=== PATIENT | female | born 1935 | race Hispanic/Latino ===

== ENCOUNTER 2017-07-03 09:49 | Emergency (ER) | payer MEDICARE ==
[2017-07-03 11:26] LABS: BASOPHILS % (AUTO) 0.5 % (0.0-5.0); EOSINOPHILS % (AUTO) 2.4 % (0.0-8.0); MEAN CORPUSCULAR HEMOGLOBIN 30.9 pg (27.0-33.0); MEAN CORPUSCULAR HGB CONC 33.9 g/dL (32.0-36.0); MEAN CORPUSCULAR VOLUME 91.1 fL (79-99); MONOCYTES % (AUTO) 7.1 % (3.0-13.0); PLATELET COUNT (AUTO) 221 K/uL (130-400); RED BLOOD CELL COUNT(AUTO) 4.39 MIL/uL (4.00-5.50); RED CELL DISTRIBUTION WIDTH 13.9 % (11.0-15.5); WHITE BLOOD COUNT (AUTO) 7.9 K/uL (4.8-10.8)
[2017-07-03 11:55] LABS: INR 0.92 (0.85-1.15); PROTHROMBIN TIME 9.7 SEC (9.6-11.6)
[2017-07-03 12:01] LABS: CREATININE 0.7 mg/dL (0.5-1.5); POTASSIUM 3.9 mmol/L (3.5-5.1)
[2017-07-03 12:17] LABS: PARTIAL THROMBOPLASTIN TIME 22.8 SEC (26.3-35.5)
[2017-07-03] MEDS ORDERED: TRAMADOL HCL 50 MG TABLET ONE (12:58)
== END 2017-07-03 13:19 | disposition home or self-care (01) ==
LOC: EDH 09:49
DX: M25.462 Effusion, left knee (principal); G89.29 Other chronic pain; M25.562 Pain in left knee; I10 Essential (primary) hypertension; E11.9 Type 2 diabetes mellitus without complications; E78.5 Hyperlipidemia, unspecified; M19.90 Unspecified osteoarthritis, unspecified site; R60.0 Localized edema; Z79.4 Long term (current) use of insulin
CPT/HCPCS: 36415; 73562; 80048; 85025; 85610; 85730; 93925; 93971

== ENCOUNTER 2018-03-31 15:34 | Emergency (ER) | payer MEDICARE ==
[2018-03-31] MEDS ORDERED: IPRATROPIUM/ALBUTEROL SULFATE 3 ML SOLUTION IH ONE (17:18)
[2018-03-31 17:34] LABS: BASOPHILS % (AUTO) 1.1 % (0.0-5.0); EOSINOPHILS % (AUTO) 2.6 % (0.0-8.0); HEMATOCRIT 39.9 % (36-48); LYMPHOCYTES % (AUTO) 29.6 % (21.0-51.0); MEAN CORPUSCULAR HGB CONC 34.7 g/dL (32.0-36.0); MEAN CORPUSCULAR VOLUME 92.3 fL (79-99); MONOCYTES % (AUTO) 6.8 % (3.0-13.0); NEUTROPHILS % (AUTO) 59.9 % (40.0-77.0); PLATELET COUNT (AUTO) 220 K/uL (130-400); RED BLOOD CELL COUNT(AUTO) 4.32 MIL/uL (4.00-5.50); RED CELL DISTRIBUTION WIDTH 13.6 % (11.0-15.5); WHITE BLOOD COUNT (AUTO) 7.8 K/uL (4.8-10.8)
[2018-03-31 18:07] LABS: CREATININE 0.8 mg/dL (0.5-1.5); POTASSIUM 3.9 mmol/L (3.5-5.1)
== END 2018-03-31 18:58 | disposition home or self-care (01) ==
LOC: EDH 15:34
DX: J06.9 Acute upper respiratory infection, unspecified (principal); E11.9 Type 2 diabetes mellitus without complications; E78.5 Hyperlipidemia, unspecified; I10 Essential (primary) hypertension; Z79.4 Long term (current) use of insulin
CPT/HCPCS: 36415; 71046; 80048; 85025; 87804; 94640

== ENCOUNTER 2021-10-28 08:06 | Observation (INO) | payer MEDICARE ==
[2021-10-26 14:40] LABS: BASOPHILS % (AUTO) 0.7 % (0.0-5.0); EOSINOPHILS % (AUTO) 2.9 % (0.0-8.0); HEMATOCRIT 44.9 % (36-48); LYMPHOCYTES % (AUTO) 29.6 % (21.0-51.0); MEAN CORPUSCULAR HEMOGLOBIN 31.3 pg (27.0-33.0); MEAN CORPUSCULAR HGB CONC 32.7 g/dL (32.0-36.0); MEAN CORPUSCULAR VOLUME 95.7 fL (79-99); MONOCYTES % (AUTO) 7.4 % (3.0-13.0); NEUTROPHILS % (AUTO) 59.1 % (40.0-77.0); PLATELET COUNT (AUTO) 204 K/uL (130-400); RED BLOOD CELL COUNT(AUTO) 4.69 MIL/uL (4.00-5.50); RED CELL DISTRIBUTION WIDTH 14.5 % (11.0-15.5); WHITE BLOOD COUNT (AUTO) 7.5 K/uL (4.8-10.8)
[2021-10-26 14:56] LABS: CREATININE 1.1 mg/dL (0.5-1.5); POTASSIUM 4.1 mmol/L (3.5-5.1)
[2021-10-26 14:58] LABS: PROTHROMBIN TIME 10.9 SEC (9.6-11.6)
[2021-10-26 15:00] LABS: PARTIAL THROMBOPLASTIN TIME 25.6 SEC (26.3-35.5)
[2021-10-26 15:27] LABS: APPEARANCE,URINE Clear (CLEAR); BILIRUBIN,URINE Negative (NEGATIVE); COLOR,URINE Yellow (YELLOW); GLUCOSE, URINE (UA) Negative (NEGATIVE); KETONES,URINE Negative (NEGATIVE); LEUKOCYTE ESTERASE ,URINE Small (NEGATIVE); NITRATE,URINE Negative (NEGATIVE); OCCULT BLOOD,URINE Negative (NEGATIVE); PROTEIN,URINE Negative (NEGATIVE); UROBILINOGEN,URINE 0.2 mg/dL (0.2-1.0)
[2021-10-26 15:42] LABS: RBC,URINE 0-1 /HPF (0-1); WBC,URINE 0-1 /HPF (0-1)
[2021-10-26 15:43] LABS: BACTERIA,URINE Few /HPF (None Seen); SQUAMOUS EPITHELIAL CELL,UR Few /HPF (0-2)
[2021-10-27 11:14] VITALS: BP 188/86
[2021-10-27] MEDS: DiphenhydrAMINE HCL 50 MG/ML VIAL IVP SCH (12:05)
[2021-10-28] VITALS (16 sets, daily range): BP systolic 106–227; BP diastolic 52–111
[~2021-10-28] VITALS: Ht 149.9 cm; Wt 78.5 kg
[~2021-10-28 08:06] MED LIST: 0.9% NACL 500ML IV.SOLN 500 ML IV SCH; AMLO-257 PO; APIX2.5T PO; CARV6.25 PO; INS7030 SQ; SIMV-43 PO
[2021-10-28] MEDS ORDERED: 0.9%NACL 1000ML 1,000 ML IV ONE (08:47)
[2021-10-28] MEDS ORDERED: FENTANYL CITRATE PF 50 MCG/1 ML 2ML VIAL ONE ×2 (11:54→17:03)
[2021-10-28] MEDS ORDERED: MIDAZOLAM HCL 1 MG/ML 2ML VIAL ONE (11:54)
[2021-10-28] MEDS ORDERED: IOHEXOL-350 50ML VIAL IV ONE (11:54)
[2021-10-28] MEDS ORDERED: LIDOCAINE HCL 400MG/20ML VIAL ONE ×3 (11:54→13:42)
[2021-10-28] MEDS ORDERED: LIDOCAINE HCL 1% MDV 50ML VIAL ONE (11:57)
[2021-10-28] MEDS ORDERED: BUPIVACAINE/PF 0.25% 30ML VIAL IJ ONE (11:57)
[2021-10-28] MEDS: DiphenhydrAMINE HCL 50 MG/ML VIAL IVP SCH (12:00)
[2021-10-28] MEDS ORDERED: VANCOMYCIN 1G/250ML KIT 500 ML IV ONE (12:26)
[2021-10-28] MEDS ORDERED: IODIXANOL 320 MG/ML 100 ML VIAL ONE (13:04)
[2021-10-28] MEDS ORDERED: HEPARIN 10,000 UNIT/10ML (1,000 UNIT/ML) VIAL ONE (13:44)
[2021-10-28] MEDS ORDERED: DEXTROSE 50%-WATER 50 ML DISP.SYRIN IV PRN (14:30)
[2021-10-28] MEDS ORDERED: HYDRALAZINE 20MG/ML VIAL ONE (16:07)
[2021-10-28] MEDS: INSULIN HUMULIN R 100 UNIT/ML 3ML SQ SCH ×2 (20:00→21:00)
[2021-10-29 00:11] VITALS: BP 145/73
[2021-10-29 04:19] VITALS: BP 143/73
[2021-10-29] MEDS: INSULIN HUMULIN R 100 UNIT/ML 3ML SQ SCH ×3 (05:58→16:30)
[2021-10-29 08:00] VITALS: BP 133/58
[2021-10-29 12:00] VITALS: BP 163/84
[2021-10-29] MEDS ORDERED: HYDROCORTISONE 1% CREAM 28G TP PRN (12:00)
[2021-10-29] MEDS ORDERED: NYSTATIN 15 GM POWDER TP SCH (12:30)
[2021-10-29 12:47] LABS: BASOPHILS % (AUTO) 0.5 % (0.0-5.0); HEMATOCRIT 46.7 % (36-48); LYMPHOCYTES % (AUTO) 17.8 % (21.0-51.0); MEAN CORPUSCULAR HEMOGLOBIN 30.7 pg (27.0-33.0); MEAN CORPUSCULAR HGB CONC 33.4 g/dL (32.0-36.0); MEAN CORPUSCULAR VOLUME 91.9 fL (79-99); MONOCYTES % (AUTO) 7.9 % (3.0-13.0); NEUTROPHILS % (AUTO) 72.4 % (40.0-77.0); PLATELET COUNT (AUTO) 174 K/uL (130-400); RED BLOOD CELL COUNT(AUTO) 5.08 MIL/uL (4.00-5.50); RED CELL DISTRIBUTION WIDTH 14.2 % (11.0-15.5)
[2021-10-29 12:58] LABS: CREATININE 0.8 mg/dL (0.5-1.5); POTASSIUM 3.5 mmol/L (3.5-5.1)
[2021-10-29 13:02] LABS: ALBUMIN 3.4 g/dL (3.5-5.0); CRP QUANTITATIVE 29.2 mg/L (0.00-9.0); TOTAL PROTEIN, SERUM 7.1 g/dL (6.0-8.3)
[2021-10-29 13:56] LABS: ERYTHROCYTE SEDIMENTATION RATE 15 MM/HR (0-30)
[2021-10-29 16:00] VITALS: BP 152/78
== END 2021-10-29 18:44 | disposition home or self-care (01) ==
LOC: DAH 08:06 → DAHIP 08:07 → DAH 08:07 → 2DH 18:51
PROVIDERS: ADMIT Internal Medicine Interventional Cardiology; ATTEND Internal Medicine Interventional Cardiology
DX: I49.5 Sick sinus syndrome (principal); L03.314 Cellulitis of groin; I48.0 Paroxysmal atrial fibrillation; E78.5 Hyperlipidemia, unspecified; B35.9 Dermatophytosis, unspecified; I10 Essential (primary) hypertension; E11.9 Type 2 diabetes mellitus without complications; E66.9 Obesity, unspecified; H91.90 Unspecified hearing loss, unspecified ear; Z79.01 Long term (current) use of anticoagulants; Z95.0 Presence of cardiac pacemaker; Z79.899 Other long term (current) drug therapy; Z91.048 Other nonmedicinal substance allergy status
CPT/HCPCS: 80048; 85025 ×2; 85610; 85730; 81001; 36415 ×2; 71045 ×2; 93005; 96374; 33274; 96376; 82948 ×5; 80053; 85651; 86140; 97161; 97039; 84145; C1769 ×2; C1894 ×2; C1785; G0378 ×26; J1200; J3010 ×2; J3490 ×4; J7030; J0360; J1644 ×3; J2250; J3370; Q9967; A4520; A4615; A4215; A4223 ×3; A4554; A4335; A4222; A4221; A4663; A4216; A6206; A6258; A4606; 99156; 99157

== ENCOUNTER 2022-02-01 01:24 | Inpatient (IN) | payer MEDICARE ==
[~2022-02-01] VITALS: Ht 142.2 cm; Wt 74.4 kg
[~2022-02-01 01:24] MED LIST changes: -0.9% NACL 500ML IV.SOLN 500 ML IV SCH
[2022-02-01] MEDS ORDERED: ASPIRIN 81MG CHEW TAB PO ONE (02:30)
[2022-02-01] MEDS ORDERED: ALBUTEROL 0.083% 2.5 MG/3 ML INH IH ONE (02:30)
[2022-02-01] MEDS ORDERED: HYDRALAZINE 20MG/ML VIAL IV ONE (02:30)
[2022-02-01 02:31] LABS: BASOPHILS % (AUTO) 0.7 % (0.0-5.0); EOSINOPHILS % (AUTO) 1.2 % (0.0-8.0); HEMATOCRIT 48.1 % (36-48); LYMPHOCYTES % (AUTO) 14.3 % (21.0-51.0); MEAN CORPUSCULAR HEMOGLOBIN 30.8 pg (27.0-33.0); MEAN CORPUSCULAR HGB CONC 32.6 g/dL (32.0-36.0); MEAN CORPUSCULAR VOLUME 94.5 fL (79-99); MONOCYTES % (AUTO) 7.1 % (3.0-13.0); NEUTROPHILS % (AUTO) 76.4 % (40.0-77.0); PLATELET COUNT (AUTO) 195 K/uL (130-400); RED BLOOD CELL COUNT(AUTO) 5.09 MIL/uL (4.00-5.50); RED CELL DISTRIBUTION WIDTH 14.7 % (11.0-15.5); WHITE BLOOD COUNT (AUTO) 9.4 K/uL (4.8-10.8)
[2022-02-01 02:46] LABS: CREATININE 1.1 mg/dL (0.5-1.5); POTASSIUM 3.7 mmol/L (3.5-5.1)
[2022-02-01 02:50] LABS: INR 1.09 (0.85-1.15); PROTHROMBIN TIME 11.8 SEC (9.6-11.6)
[2022-02-01 02:51] LABS: PARTIAL THROMBOPLASTIN TIME 23.8 SEC (26.3-35.5)
[2022-02-01 02:55] LABS: ALBUMIN 3.6 g/dL (3.5-5.0); TOTAL PROTEIN, SERUM 7.6 g/dL (6.0-8.3)
[2022-02-01] MEDS ORDERED: IPRATROPIUM/ALBUTEROL SULFATE 3 ML SOLUTION IH ONE (03:30)
[2022-02-01] MEDS ORDERED: CLONIDINE HCL 0.1 MG TABLET PO ONE (03:30)
[2022-02-01 03:33] LABS: ABG BASE EXCESS 0.2 mmol/L (-2.0-3.0); ABG HCO3 22.1 mmol/L (21.0-28.0); ABG OXYGEN SATURATION 91.9 % (95.0-99.0); ABG PCO2 29 mmHg (32-45)
[2022-02-01] MEDS ORDERED: FUROSEMIDE 40MG VIAL IV ONE (04:00)
[2022-02-01 04:28] LABS: APPEARANCE,URINE CLEAR (CLEAR); BILIRUBIN,URINE NEGATIVE (NEGATIVE); COLOR,URINE LIGHT-YELLOW (YELLOW); GLUCOSE, URINE (UA) TRACE mg/dL (NEGATIVE); KETONES,URINE 5 mg/dL (NEGATIVE); LEUKOCYTE ESTERASE ,URINE NEGATIVE Leu/uL (NEGATIVE); NITRATE,URINE NEGATIVE (NEGATIVE); OCCULT BLOOD,URINE SMALL (NEGATIVE); PROTEIN,URINE 200 mg/dL (NEGATIVE); UROBILINOGEN,URINE 0.2 mg/dL (0.2-1.0)
[2022-02-01 04:35] LABS: MUCUS,URINE RARE LPF (None Seen); SQUAMOUS EPITHELIAL CELL,UR RARE /HPF (0-2)
[2022-02-01] MEDS ORDERED: IOHEXOL 350 MG/ML 100ML INFUS..BTL IV ONE (06:35)
[2022-02-01] MEDS ORDERED: GUAIFENESIN-DM 200/20 MG 10 ML PO PRN (07:00)
[2022-02-01] MEDS ORDERED: ONDANSETRON 4MG INJ IV PRN (07:00)
[2022-02-01] MEDS ORDERED: DiphenhydrAMINE HCL 50 MG/ML VIAL IV PRN (07:00)
[2022-02-01] MEDS ORDERED: NITROGLYCERIN 0.4 MG SL TAB SL PRN (07:00)
[2022-02-01] MEDS ORDERED: MAG/ALUM/SIMETH 30 ML UDCUP PO PRN (07:00)
[2022-02-01] MEDS ORDERED: LACTULOSE 20 GM/30 ML UDCUP PO PRN (07:00)
[2022-02-01] MEDS ORDERED: DIPHENHYDRAMINE HCL 25 MG CAPSULE PO PRN ×2 (07:00→13:30)
[2022-02-01] MEDS ORDERED: ACETAMINOPHEN 325 MG TAB PO PRN (07:00)
[2022-02-01 07:53] LABS: HEMOGLOBIN A1C 6.9 % (4.0-6.0)
[2022-02-01] MEDS ORDERED: FAMOTIDINE 20MG VIAL IV SCH (09:00)
[2022-02-01] MEDS ORDERED: MELO-106 PO (09:56)
[2022-02-01] MEDS ORDERED: TORS20TA4 PO (09:56)
[2022-02-01] MEDS ORDERED: SERT-439 PO (09:56)
[2022-02-01] MEDS ORDERED: TRAM50TA4 PO (09:56)
[2022-02-01] MEDS ORDERED: HYDR-3421 PO (09:56)
[2022-02-01] MEDS: LISINOPRIL 40 MG TABLET PO SCH (10:04)
[2022-02-01] MEDS: FAMOTIDINE 20MG TAB PO SCH ×2 (10:04→20:20)
[2022-02-01] MEDS: HEPARIN 5,000 UNIT VIAL SQ SCH ×3 (10:04→20:23)
[2022-02-01] MEDS: FUROSEMIDE 40 MG TABLET PO SCH (10:04)
[2022-02-01 10:30] VITALS: BP 129/72
[2022-02-01] MEDS: ACETAMINOPHEN 325 MG TAB PO PRN (12:59)
[2022-02-01] MEDS ORDERED: PROCHLORPERAZINE 10MG/2ML INJ IV PRN (13:30)
[2022-02-01] MEDS ORDERED: IBUPROFEN 200 MG TAB PO PRN (13:30)
[2022-02-01 15:45] VITALS: BP 157/79
[2022-02-01 21:01] VITALS: BP 145/77
[2022-02-02] VITALS (7 sets, daily range): BP systolic 109–168; BP diastolic 59–87
[2022-02-02 05:26] LABS: BASOPHILS % (AUTO) 0.7 % (0.0-5.0); EOSINOPHILS % (AUTO) 0.9 % (0.0-8.0); HEMATOCRIT 47.9 % (36-48); LYMPHOCYTES % (AUTO) 13.5 % (21.0-51.0); MEAN CORPUSCULAR HEMOGLOBIN 31.2 pg (27.0-33.0); MEAN CORPUSCULAR HGB CONC 33.2 g/dL (32.0-36.0); MEAN CORPUSCULAR VOLUME 93.9 fL (79-99); MONOCYTES % (AUTO) 10.4 % (3.0-13.0); PLATELET COUNT (AUTO) 198 K/uL (130-400); RED CELL DISTRIBUTION WIDTH 14.7 % (11.0-15.5); WHITE BLOOD COUNT (AUTO) 8.8 K/uL (4.8-10.8)
[2022-02-02 05:33] LABS: CREATININE 1.1 mg/dL (0.5-1.5); MAGNESIUM 1.4 mg/dL (1.80-2.40); PHOSPHORUS 3.6 mg/dL (2.5-4.9)
[2022-02-02] MEDS ORDERED: POTASSIUM CHLORIDE 20MEQ/100ML 100 ML IV PRN (06:30)
[2022-02-02] MEDS ORDERED: LIDOCAINE HCL-MPF 1% 2ML VIAL IV PRN (06:30)
[2022-02-02] MEDS: KCL 20 MEQ ERTAB PO PRN ×2 (06:46→09:08)
[2022-02-02] MEDS: MAGNESIUM 2GM PREMIX 50ML 50 ML IV PRN (06:46)
[2022-02-02] MEDS: LISINOPRIL 40 MG TABLET PO SCH (08:22)
[2022-02-02] MEDS: FAMOTIDINE 20MG TAB PO SCH ×2 (08:22→21:30)
[2022-02-02] MEDS: FUROSEMIDE 40 MG TABLET PO SCH (08:22)
[2022-02-02] MEDS ORDERED: DEXTROSE 50%-WATER 50 ML DISP.SYRIN IV PRN (08:30)
[2022-02-02] MEDS ORDERED: GLUCAGON 1MG KIT 1 MG ML IM PRN (08:30)
[2022-02-02] MEDS: HEPARIN 5,000 UNIT VIAL SQ SCH ×3 (09:07→21:31)
[2022-02-02] MEDS: BUDESONIDE 0.25 MG/2 ML INH IH SCH ×2 (10:30→18:54)
[2022-02-02] MEDS: IPRATROPIUM/ALBUTEROL SULFATE 3 ML SOLUTION IH SCH ×4 (10:58→23:17)
[2022-02-02] MEDS: POTASSIUM CHLORIDE 10% ELIXIR 20 MEQ/15 ML UDCUP PO PRN (11:13)
[2022-02-02] MEDS: PREDNISONE 20 MG TABLET PO SCH (11:14)
[2022-02-02] MEDS: INSULIN HUMULIN R 100 UNIT/ML 3ML SQ SCH ×3 (12:04→21:30)
[2022-02-02] MEDS: ACETAMINOPHEN 325 MG TAB PO PRN (15:31)
[2022-02-03 03:40] VITALS: BP 153/88
[2022-02-03 04:34] LABS: BASOPHILS % (AUTO) 0.3 % (0.0-5.0); HEMATOCRIT 47.1 % (36-48); LYMPHOCYTES % (AUTO) 11.8 % (21.0-51.0); MEAN CORPUSCULAR HEMOGLOBIN 31.1 pg (27.0-33.0); MEAN CORPUSCULAR HGB CONC 33.3 g/dL (32.0-36.0); MEAN CORPUSCULAR VOLUME 93.3 fL (79-99); MONOCYTES % (AUTO) 11.8 % (3.0-13.0); NEUTROPHILS % (AUTO) 75.6 % (40.0-77.0); PLATELET COUNT (AUTO) 199 K/uL (130-400); RED BLOOD CELL COUNT(AUTO) 5.05 MIL/uL (4.00-5.50); RED CELL DISTRIBUTION WIDTH 14.5 % (11.0-15.5); WHITE BLOOD COUNT (AUTO) 8.9 K/uL (4.8-10.8)
[2022-02-03 04:46] LABS: CREATININE 1.1 mg/dL (0.5-1.5); POTASSIUM 3.1 mmol/L (3.5-5.1)
[2022-02-03] MEDS: INSULIN HUMULIN R 100 UNIT/ML 3ML SQ SCH ×4 (06:06→22:09)
[2022-02-03] MEDS: KCL 20 MEQ ERTAB PO PRN ×2 (06:14→08:54)
[2022-02-03] MEDS: IPRATROPIUM/ALBUTEROL SULFATE 3 ML SOLUTION IH SCH ×4 (06:59→23:11)
[2022-02-03] MEDS: BUDESONIDE 0.25 MG/2 ML INH IH SCH ×2 (06:59→18:35)
[2022-02-03 07:50] VITALS: BP 131/60
[2022-02-03] MEDS: LISINOPRIL 40 MG TABLET PO SCH (08:54)
[2022-02-03] MEDS: FUROSEMIDE 40 MG TABLET PO SCH (08:54)
[2022-02-03] MEDS: PREDNISONE 20 MG TABLET PO SCH (08:54)
[2022-02-03] MEDS: FAMOTIDINE 20MG TAB PO SCH ×2 (08:54→22:04)
[2022-02-03] MEDS: HEPARIN 5,000 UNIT VIAL SQ SCH ×3 (08:56→22:05)
[2022-02-03 11:05] LABS: MAGNESIUM 1.7 mg/dL (1.80-2.40); POTASSIUM 3.2 mmol/L (3.5-5.1)
[2022-02-03] MEDS: MAGNESIUM 2GM PREMIX 50ML 50 ML IV PRN (11:45)
[2022-02-03 11:50] VITALS: BP 146/83
[2022-02-03] MEDS: POTASSIUM CHLORIDE 10% ELIXIR 20 MEQ/15 ML UDCUP PO PRN ×2 (13:59→16:03)
[2022-02-03 15:15] VITALS: BP 125/63
[2022-02-03 20:21] VITALS: BP 133/71
[2022-02-03] MEDS ORDERED: INSULIN GLARGINE 100 UNITS/ML 10 ML VIAL SQ SCH (21:00)
[2022-02-03 23:59] VITALS: BP 123/89
[2022-02-04 04:26] VITALS: BP 150/94
[2022-02-04 05:51] LABS: BASOPHILS % (AUTO) 0.3 % (0.0-5.0); EOSINOPHILS % (AUTO) 0.1 % (0.0-8.0); HEMATOCRIT 51.2 % (36-48); LYMPHOCYTES % (AUTO) 15.5 % (21.0-51.0); MEAN CORPUSCULAR HGB CONC 32.8 g/dL (32.0-36.0); MEAN CORPUSCULAR VOLUME 94.5 fL (79-99); MONOCYTES % (AUTO) 8.2 % (3.0-13.0); NEUTROPHILS % (AUTO) 75.3 % (40.0-77.0); PLATELET COUNT (AUTO) 243 K/uL (130-400); RED BLOOD CELL COUNT(AUTO) 5.42 MIL/uL (4.00-5.50); RED CELL DISTRIBUTION WIDTH 14.6 % (11.0-15.5); WHITE BLOOD COUNT (AUTO) 14.6 K/uL (4.8-10.8)
[2022-02-04 05:58] LABS: CREATININE 1.1 mg/dL (0.5-1.5); POTASSIUM 3.9 mmol/L (3.5-5.1)
[2022-02-04] MEDS: INSULIN HUMULIN R 100 UNIT/ML 3ML SQ SCH ×2 (06:30→11:30)
[2022-02-04] MEDS: IPRATROPIUM/ALBUTEROL SULFATE 3 ML SOLUTION IH SCH ×2 (07:15→11:51)
[2022-02-04] MEDS: BUDESONIDE 0.25 MG/2 ML INH IH SCH (07:16)
[2022-02-04 08:01] VITALS: BP 173/79
[2022-02-04] MEDS: HEPARIN 5,000 UNIT VIAL SQ SCH (09:46)
[2022-02-04] MEDS: PREDNISONE 20 MG TABLET PO SCH (09:47)
[2022-02-04] MEDS: FUROSEMIDE 40 MG TABLET PO SCH (09:47)
[2022-02-04] MEDS: FAMOTIDINE 20MG TAB PO SCH (09:47)
[2022-02-04] MEDS: LISINOPRIL 40 MG TABLET PO SCH (09:48)
[2022-02-04 12:09] VITALS: BP 161/92
== END 2022-02-04 17:00 | DRG 191 ==
LOC: EDH 01:24 → OBSVTOIN 06:38 → EDHIP 06:38 → 3DH 10:33
PROVIDERS: ADMIT Internal Medicine; ATTEND Internal Medicine
DX: J44.1 Chronic obstructive pulmonary disease with (acute) exacerbation (principal); E87.1 Hypo-osmolality and hyponatremia; F05 Delirium due to known physiological condition; I11.0 Hypertensive heart disease with heart failure; I50.9 Heart failure, unspecified; I48.91 Unspecified atrial fibrillation; E11.9 Type 2 diabetes mellitus without complications; I49.5 Sick sinus syndrome; R09.02 Hypoxemia; Z79.01 Long term (current) use of anticoagulants; Z82.49 Family history of ischemic heart disease and other diseases of the circulatory system; Z83.3 Family history of diabetes mellitus; Z88.0 Allergy status to penicillin; Z95.0 Presence of cardiac pacemaker; R33.9 Retention of urine, unspecified
CPT/HCPCS: 36415; 36600; 70450; 71045; 71275; 80048; 80053; 81001; 82435; 82550; 82803; 82947; 82948; 83036; 83605; 83735; 83880; 84100; 84132; 84145; 84295; 84484; 85018; 85025; 85610; 85730; 87040; 93005; 93306; 94640; 94664; 94760; 97039; A4606; G0378; J0360; J1644; J1815; J1940; J3475; Q0163; Q9967